=== PATIENT | female | born 1995 | race African-American/Black ===

== ENCOUNTER 2016-11-28 20:30 | Emergency (ER) | payer SELFPAY ==
[~2016-11-28] VITALS: Ht 167.6 cm; Wt 68.0 kg
[2016-11-28 20:32] VITALS: BP 131/74; PULSE 93; RESP 16; TEMP 98.1; O2SAT 100
[2016-11-28 21:57] LABS: BLOOD, URINE NEG (NEG); GLUCOSE,URINE NEG (NEG); KETONE, URINE NEG (NEG); MUCUS URINE FEW /lpf (OCC); NITRITE,URINE NEG (NEG); PH, URINE 6.5 (5.0-8.5); SQUAMOUS EPITHELIAL CELL URINE 8 /hpf (0-5); URINE COLOR YELLOW (YELLW/STRAW)
[2016-11-28 21:59] LABS: COMMENT (UR) CULT NOT INDICATED; CULTURE IF INDICATED CULT NOT INDICATED
--- NOTE | 2016-11-28 21:59 | PD ---
HPI Chief Complaint: Firearms Specialist Problem/Complaint Time Seen by Provider: 21:54 Travel History International Travel<30 days: No Contact w/Intl Traveler<30days: No Traveled to known affect area: No History of Present Illness HPI 21-year-old female with history of no significant past medical issues, presents to the ER with 3 weeks' history of lower abdominal pain which she currently states is a 3 out of 10, heavy menses last week, states she is here to get things checked out because is not going away. She admits she has noted more vaginal discharge than usual. She denies any urinary symptoms, vomiting, fevers , or any other symptoms. She does not know any exacerbating or alleviating factors. Modifying Factors: None Associated Signs & Symptoms: 3 weeks of lower abdominal pain, heavy menses, vaginal discharge Risk Factors: None PFSH Past Medical History Medical History: Denies Significant Hx Tetanus Vaccination: Unknown Influenza Vaccination: No ?: Unknown LMP: 11-15-16 Past Surgical History Surgical History: No Previous Surgery Social History Alcohol Use: No Tobacco Use: No Substance Use: No Allergies-Medications (Allergen,Severity, Reaction): Coded Allergies: No Known Allergies (Unverified , 11/28/16) Review of Systems Except as stated in HPI: all other systems reviewed are Neg Physical Exam Narrative GENERAL: Well-nourished, well-developed young -[place] female patient in no acute distress. SKIN: Warm and dry. HEAD: Normocephalic. EYES: No scleral icterus. No injection or drainage. NECK: Supple, trachea midline. CARDIOVASCULAR: Regular rate and rhythm without murmurs, gallops, or rubs. RESPIRATORY: Breath sounds equal bilaterally. No accessory muscle use. GASTROINTESTINAL: Abdomen soft, mild suprapubic tenderness without guarding or rebound, nondistended. GENITOURINARY: Normal external genitalia without lesions or erythema. Vaginal vault without blood or drainage. Cervical os was closed without drainage. Mild cervical motion tenderness. Uterus nontender and nonenlarged. Bilateral adnexa nontender without masses. MUSCULOSKELETAL: No cyanosis, or edema. BACK: Nontender without obvious deformity. No CVA tenderness. Data Data Last Documented VS Vital Signs Date Time Temp Pulse Resp B/P Pulse Ox O2 Delivery O2 Flow Rate FiO2 11/28/16 20:32 98.1 93 16 131/74 100 Room Air Orders Urinalysis - C+S If Indicated (11/28/16 21:16) Ed Urine Pregnancytest Poc (11/28/16 21:16) Labs Laboratory Tests Test 11/28/16 21:10 Urine Color YELLOW Urine Turbidity HAZY Urine pH 6.5 Urine Specific [place] 1.023 Urine Protein TRACE mg/dL Urine Glucose (UA) NEG mg/dL Urine Ketones NEG mg/dL Urine Occult Blood NEG Urine Nitrite NEG Urine Bilirubin NEG Urine Urobilinogen LESS THAN 2.0 MG/DL Urine Leukocyte Esterase NEG Urine RBC 1 /hpf Urine WBC 4 /hpf Urine Squamous Epithelial 8 /hpf Cells Urine Mucus FEW /lpf Microscopic Urinalysis Comment CULT NOT INDICATED MDM Medical Decision Making Medical Screen Exam Complete: Yes Emergency Medical Condition: Yes Medical Record Reviewed: Yes Interpretation(s) Laboratory Tests Test 11/28/16 21:10 Urine Turbidity HAZY (CLEAR) Urine Mucus FEW /lpf (OCC) Differential Diagnosis Pelvic pain, heavy mensesdysmenorrhea versus UTI versus Narrative Course Patient is not . UA did not show significant UTI. Abdomen is benign and I do not suspect an acute intra-abdominal process. Pelvic exam does show some mild CMT but is otherwise unremarkable. Patient has unprotected sex and states she is worried about possible STD. At this point, I have offered to give her antibiotic treatment for possible vaginitis or cervicitis. She is accepting. I have offered to do further lab work testing including blood testing for further evaluation of abdominal pain but patient declines at this point stating that she does not want further testing to be done at this time. She should return for any worsening in symptoms. Safe sex until resulted STD test. Plan was discussed with her and she states understanding. Diagnosis Primary Impression: Vaginal discharge Med/Other Pt SpecificInfo: Prescription(s) given Disposition: DISCHARGE HOME Condition: Stable Erika Bal MD Nov 28, 2016 21:59 Erika Bal MD Nov 28, 2016 21:59
[2016-11-28] MEDS ORDERED: cefTRIAXone 250 MG VIAL IM ONE (22:45)
[2016-11-28] MEDS ORDERED: LIDOCAINE HCL 1% 50 ML VIAL IM ONE (22:45)
[2016-11-28] MEDS ORDERED: AZITHROMYCIN PWD FOR SUSP 1 GM PACKET PO ONE (22:45)
[2016-11-28] MEDS ORDERED: metroNIDAZOLE 500 MG TAB PO ONE (22:45)
[2016-11-29 00:41] LABS: CHLAMYDIA PCR NOT DETECTED (NOT DETECT); NEISSERIA PCR NOT DETECTED (NOT DETECT)
== END 2016-11-28 23:13 | disposition home or self-care (01) ==
LOC: NEPE 20:30
DX: N89.8 Other specified noninflammatory disorders of vagina (principal)
CPT/HCPCS: 81001; 84703; 87210; 87491; 87591; 96372; 99283; J0696

== ENCOUNTER 2017-03-02 21:09 | Emergency (ER) | payer SELFPAY ==
[2017-03-02 21:11] VITALS: BP 141/70; PULSE 100; RESP 16; TEMP 98.5; O2SAT 100
== END 2017-03-02 21:48 | disposition left against medical advice (07) ==
LOC: NED 21:09
DX: N94.9 Unspecified condition associated with female genital organs and menstrual cycle (principal)
CPT/HCPCS: 99281